=== PATIENT | male | born 1935 | race Caucasian/White ===

== ENCOUNTER → 2016-08-01 | Outpatient (CLI) | payer MEDICARE, OTHER | END | disposition home or self-care (01) | LOC: GMAL 10:38 | PROVIDERS: ATTEND Family Medicine | DX: D51.3 Other dietary vitamin B12 deficiency anemia (principal); E55.9 Vitamin D deficiency, unspecified ==

== ENCOUNTER → 2016-11-19 | Outpatient (CLI) | payer MEDICARE, OTHER | END | disposition home or self-care (01) | LOC: GMAL 12:03 | PROVIDERS: ATTEND Family Medicine | DX: E55.9 Vitamin D deficiency, unspecified (principal) ==

== ENCOUNTER → 2017-02-20 | Outpatient (CLI) | payer MEDICARE, OTHER | END | disposition home or self-care (01) | LOC: GMAL 10:46 | PROVIDERS: ATTEND Family Medicine | DX: Z12.5 Encounter for screening for malignant neoplasm of prostate (principal); M25.50 Pain in unspecified joint | CPT/HCPCS: 84550; G0103 ==

== ENCOUNTER → 2017-05-29 | Outpatient (CLI) | payer MEDICARE, OTHER | END | disposition home or self-care (01) | LOC: GMAL 10:29 | PROVIDERS: ATTEND Family Medicine | DX: R97.20 Elevated prostate specific antigen [PSA] (principal) ==

== ENCOUNTER → 2017-11-20 | Outpatient (CLI) | payer MEDICARE, OTHER | LOC: GMAL 12:35 | PROVIDERS: ATTEND Family Medicine | DX: R97.20 Elevated prostate specific antigen [PSA] (principal) ==

== ENCOUNTER → 2017-11-27 | Outpatient (CLI) | payer MEDICARE, OTHER | LOC: GMAL 16:35 | PROVIDERS: ATTEND Family Medicine | DX: D51.3 Other dietary vitamin B12 deficiency anemia (principal); R53.82 Chronic fatigue, unspecified ==

== ENCOUNTER → 2018-03-10 | Outpatient (CLI) | payer MEDICARE, OTHER | LOC: GMAL 12:39 | PROVIDERS: ATTEND Family Medicine | DX: R97.20 Elevated prostate specific antigen [PSA] (principal); R53.83 Other fatigue; E55.9 Vitamin D deficiency, unspecified; M10.9 Gout, unspecified ==

== ENCOUNTER → 2018-03-19 | Outpatient (CLI) | payer MEDICARE, OTHER ==
--- NOTE | 2018-03-19 17:25 | MRI ---
EXAM DESCRIPTION: Brain w/o Contrast: MRI. CLINICAL HISTORY: MEMORY LOSS COMPARISON: None. TECHNIQUE: Multiplanar, high-field MRI unit, multiple diffusion sequences, multiple conventional sequences without contrast. FINDINGS: Multiple small foci of hyperintense FLAIR and T2-weighted signal in the periventricular white matter and hoskins-white matter junctions (subcortical white matter) of the cerebral hemispheres. . No hemorrhage, no cerebral edema, and no diffusion restriction. Similar hyperintense foci in the bilateral basal ganglia. No hemorrhage cerebral edema or diffusion restriction. Normal signal in the brainstem and cerebellar hemispheres. No hemorrhage, no cerebral edema, no mass-effect. Concordance of the diffusion and non-diffusion sequences with no diffusion restriction. Cortical sulci, ventricles, and other CSF spaces, and the subdural spaces are normally configured for patients age. No effacement or displacement. No midline shift. No extra-axial hemorrhage. Normal flow signal void in the major vessels of the [place], and the venous sinuses. IACs are symmetric bilaterally. Minimal fluid signal in the bilateral mastoid air cells. No mass effect in the bilateral cerebellopontine angles. Pituitary gland occupies inferior sella, sella appears somewhat deformed on the sagittal sequence, but no mass effect.. Base of the cerebellar tonsils is at the level of the foramen magnum. Minimal mucoperiosteal thickening in the bilateral paranasal sinuses.. The bony calvarium is intact. IMPRESSION: 1. Multiple bilateral foci of abnormal signal in the periventricular white matter and the subcortical white matter which is most likely related to aging and cerebral microvascular disease. Also involving the bilateral basal ganglia. Not associated with intra-axial hemorrhage or diffusion restriction. No cerebral edema. 2. No diffusion restriction or evidence of acute or subacute infarction elsewhere. 3. Minimal deformity of the sella, but pituitary tissue is noted. No definite mass. Correlate for pituitary dysfunction. 4. 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 Electronically signed by: Zain Rizo MD 03/19/2018 5:24 PM [employer]GE[employer]
== END ==
LOC: MRI 11:03
PROVIDERS: ATTEND Family Medicine
DX: R41.81 Age-related cognitive decline (principal)

== ENCOUNTER 2018-05-01 17:38 | Observation (INO) | payer MEDICARE, OTHER ==
[2018-05-01] MEDS ORDERED: TETANUS,DIPHTHERIA,PERTUSSIS 1 EA SYG IM ONE (18:15)
--- NOTE | 2018-05-01 18:21 | ED.PDOC ---
History of Present Illness - General Chief Complaint: Trauma Stated Complaint: fall Time Seen by Provider: 05/01/18 18:12 Source: patient, RN notes reviewed - History of Present Illness Initial Comments: The patient presents to the ED with complaint of fall just prior to arrival. The patient was holding an 80 pound dog and as he was placing the dog onto the ground he was noted to fall from standing height which caused him to strike his head, left shoulder, left elbow, left forearm as well as his left ribs. The patient states that he is suffering from a mild headache as well as bleeding from his head injury. The patient also complains of left sided abdominal pain/rib pain as well. The patient states that he did not suffer from LOC with this issue. The patient does not have a history of blood thinner usage but does admit to ASA usage. Allergies/Adverse Reactions: Allergies Penicillins Allergy (Verified 05/01/18 22:41) Sulfa Antibiotics Allergy (Verified 05/01/18 22:41) Home Medications: Ambulatory Orders Aspirin [Aspirin 81] 81 mg PO DAILY 06/15/13 Doxepin HCl 10 mg PO HS 06/15/13 Enalapril Maleate [Vasotec] 20 mg PO BEDTIME 06/15/13 Atorvastatin Calcium [Lipitor] 5 mg PO DAILY 05/01/18 Cholecalciferol [Vitamin D3] 1,000 unit PO DAILY 05/01/18 Cyanocobalamin [Vitamin B-12] 2,500 mcg SL DAILY 05/01/18 Glimepiride 1 mg PO BEDTIME 05/01/18 Metformin HCl 500 mg PO TID 05/01/18 Review of Systems - Review of Systems Review of Systems: 05/01/18 18:21 A 10 PT ROS WAS DONE AT THE PATIENT'S BEDSIDE AND IS NEGATIVE EXCEPT NOTED IN THE PATIENT'S HPI. Past Medical History (General) - Patient Medical History Hx Congestive Heart Failure: No Hx Hypertension: Yes Hx Diabetes: Yes Hx Cancer: No Hx Hepatitis C: No Surgical History: other - Vaccination History Hx Tetanus, Diphtheria Vaccination: Yes - 2017 Hx Influenza Vaccination: No Hx Pneumococcal Vaccination: Yes - Social History Hx Tobacco Use: No Hx Alcohol Use: Yes - Female History Patient : No Family Medical History - Family History Mother Family History: Unknown Physical Exam - Physical Exam General Appearance: Comfortable, Well Developed, Well Groomed Eye Exam: bilateral normal Ears, Nose, Throat: hearing grossly normal, normal ENT inspection, other - THERE ARE MULTIPLE ABRASIONS ON THE LEFT SIDE OF THE FACE WITH A .25CM LACERATION ABOVE THE LEFT EYEBROW WITH +BLEEDING. Neck: non-tender, full range of motion, supple Respiratory: chest non-tender, lungs clear, normal breath sounds Cardiovascular/Chest: normal peripheral pulses, regular rate, rhythm Gastrointestinal/Abdominal: normal bowel sounds, soft, no organomegaly, tenderness - LEFT LOWER ABD Back Exam: CVA tenderness (L) Extremity: normal range of motion, swelling - LEFT SHOULDER/LEFT FOREARM NOTED., other - THERE IS TTP OF THE LEFT FOREARM/SHOULDER/ELBOW AT THIS TIME. THERE IS NO TTP OF THE LEFT WRIST(INCLUDING SNUFFBOX) WELL NO TTP OF THE LEFT HAND NOTED. Neurologic: alert, normal mood/affect, oriented x 3 Lymphatic: no adenopathy Progress - Progress Progress: 05/01/18 18:32 DDX HEAD INJURY, CERVICAL SPINE INJURY, TRUNK INJURY, INTERNAL HEMORRHAGE, SOLID ORGAN INJURY, HOLLOW ORGAN INJURY, SPINAL INJURY, LACERATION, ABRASION, CONTUSION, SPRAIN. MDM PATIENT PRESENTATION APPEARS TO BE CONSISTENT WITH INJURIES DUE TO TRAUMA. WILL ORDER IMAGING OF AREAS THAT WERE INJURED(CT HEAD/NECK/CHEST/AP WELL PLAIN FILMS OF THE LUE IN THE AREAS THAT THE PATIENT ENDORSES PAIN) TO EVALUATE FOR EMERGENT PATHOLOGY IN THESE AREAS. IF NOTHING EMERGENT FOUND, DISPO WILL BE HOME. 05/01/18 19:14 The patient states that his pain is worsened in his left ribs at this time. Will order morphine sulfate for pain relief. The patient's blood pressure is also noted to be elevated at 200 systolically, with questioning the patient has not taken his BP medication which we will administer now. The patient also has been advised of his shoulder,elbow, FA x-ray as well as lab results. The patient states that he has pain in his hand as well as wrist at this time and in light of this I will add plain films of these areas (the patient has no snuffbox ttp noted on exam). It should be noted that the patient and his have been advised that the patient must hold his metformin for 72hours due to contrast that he will receive to evaluate for trauma. 05/01/18 19:47 THE PATIENT WAS NOTED TO HAVE A NEAR SYNCOPAL EPISODE AT THIS TIME. HIS BLOOD PRESSURE WAS NOTED TO DECREASE FROM 200 SYSTOLIC TO LESS THAN 140 AT THIS TIME. THE PATIENT STATES THAT HE FEELS WEAK. I WILL CONTINUE TO MONITOR THE PATIENT FOR CLINICAL CHANGES. 05/01/18 21:59 THE PATIENT REMAINS STABLE AT THIS TIME. I HAVE ADVISED HIM OF ALL LAB AND RADIOLOGICAL RESULTS AT THIS TIME. HE IS ADVISED WE WILL ADMIT HIM TO THE HOSPITALIST SERVICE FOR PAIN CONTROL WELL FOR MONITORING. DUE TO THE PATIENT'S PERSISTENT HYPERTENSION, WILL ADD EKG/TROPONIN AT THIS TIME TO SCREEN FOR ATYPICAL ACS. - Results/Orders Results/Orders: PLEASE NOTE ALL LAB AND RADIOLOGICAL RESULTS WERE REVIEWED IN REGARDS TO THIS PATIENT. - EKG/XRAY/CT Comments: EKGNSR, RATE OF 76 BPM, AXIS NL, NONSPECIFIC ST CHANGES NOTED. XRAY: LEFT ELBOW/FOREARM/SHOULDER/WRIST/HAND Xray Comments: NO ACUTE FX NOTED. CT: HEAD/NECK/CHEST/AP RESULTS REVIEWED. DISCUSSED W/ PATIENT. - Consult/PCP Time Called: 21:20 Consult/PCP: ACCEPTS THE PATIENT ADMISSION AT THIS TIME. Procedures - Laceration/Wound Repair Left Eye Wound Length (cm): 0.2 - the length of the laceration is .25cm, [employer] has limited me putting in 0.25 in the wound length. Wound's Depth, Shape: superficial Wound Explored: clean Irrigated w/ Saline (cc's): 60 Betadine Prep?: No Anesthesia: 1% Lidocaine Volume Anesthetic (cc's): 3 Suture Size/Type: 5:0, prolene Number of Sutures: 2 Layer Closure?: No Progress: THE PATIENT TOLERATED THIS PROCEDURE WELL. Departure - Departure Clinical Impression: Near syncope, Blunt trauma Facial laceration Qualifiers: Encounter type: initial encounter Qualified Code(s): S01.81XA - Laceration without foreign body of other part of head, initial encounter Hypertension Qualifiers: Hypertension type: unspecified Qualified Code(s): I10 - Essential (primary) hypertension Rib fractures Qualifiers: Encounter type: initial encounter Rib fracture type: multiple ribs Fracture type: closed Laterality: unspecified laterality Qualified Code(s): S22.49XA - Multiple fractures of ribs, unspecified side, initial encounter for closed fracture Disposition: Admit Patient Condition: Fair Home Medications: Ambulatory Orders Aspirin [Aspirin 81] 81 mg PO DAILY 06/15/13 Doxepin HCl 10 mg PO HS 06/15/13 Enalapril Maleate [Vasotec] 20 mg PO BEDTIME 06/15/13 Atorvastatin Calcium [Lipitor] 5 mg PO DAILY 05/01/18 Cholecalciferol [Vitamin D3] 1,000 unit PO DAILY 05/01/18 Cyanocobalamin [Vitamin B-12] 2,500 mcg SL DAILY 05/01/18 Glimepiride 1 mg PO BEDTIME 05/01/18 Metformin HCl 500 mg PO TID 05/01/18 Decision To Admit - Decistion To Admit Decision to Admit Reason: Admit from ER Decision to Admit Date: 05/01/18 Decision to Admit Time: 22:51
--- NOTE | 2018-05-01 19:07 | RAD ---
EXAM: Elbow,Left 3 Views (accession [id number]), Forearm,Left (accession [id number]), Shoulder,Left 2 or More Views (accession [id number]) CLINICAL INDICATION: Left shoulder pain, left elbow pain, left forearm pain COMPARISON: There is no previous study for comparison. FINDINGS: Two views of the left shoulder reveal no fracture or dislocation. Mild degenerative changes of the glenohumeral and AC joints are noted. Two views of the left elbow reveal no fracture or dislocation. There is no elbow joint effusion. Two views of the left forearm reveal no fracture or dislocation. The osseous structures appear intact and unremarkable. IMPRESSION: Negative left shoulder, left elbow, and left forearm radiographs. Electronically signed by: Kevin Olivo MD 05/01/2018 7:06 PM [facility]
--- NOTE | 2018-05-01 19:07 | RAD ---
EXAM: Elbow,Left 3 Views (accession [id number]), Forearm,Left (accession [id number]), Shoulder,Left 2 or More Views (accession [id number]) CLINICAL INDICATION: Left shoulder pain, left elbow pain, left forearm pain COMPARISON: There is no previous study for comparison. FINDINGS: Two views of the left shoulder reveal no fracture or dislocation. Mild degenerative changes of the glenohumeral and AC joints are noted. Two views of the left elbow reveal no fracture or dislocation. There is no elbow joint effusion. Two views of the left forearm reveal no fracture or dislocation. The osseous structures appear intact and unremarkable. IMPRESSION: Negative left shoulder, left elbow, and left forearm radiographs. Electronically signed by: Kevin Olivo MD 05/01/2018 7:06 PM [facility]
--- NOTE | 2018-05-01 19:07 | RAD ---
EXAM: Elbow,Left 3 Views (accession [id number]), Forearm,Left (accession [id number]), Shoulder,Left 2 or More Views (accession [id number]) CLINICAL INDICATION: Left shoulder pain, left elbow pain, left forearm pain COMPARISON: There is no previous study for comparison. FINDINGS: Two views of the left shoulder reveal no fracture or dislocation. Mild degenerative changes of the glenohumeral and AC joints are noted. Two views of the left elbow reveal no fracture or dislocation. There is no elbow joint effusion. Two views of the left forearm reveal no fracture or dislocation. The osseous structures appear intact and unremarkable. IMPRESSION: Negative left shoulder, left elbow, and left forearm radiographs. Electronically signed by: Kevin Olivo MD 05/01/2018 7:06 PM [facility]
[2018-05-01] MEDS ORDERED: SODIUM CHLORIDE 0.9% 1000ML 1,000 ML ONE (19:11)
[2018-05-01] MEDS ORDERED: MORPHINE SULFATE INJ 10 MG/ML VIAL IV ONE ×2 (19:12→22:24)
[2018-05-01] MEDS ORDERED: ENALAPRIL MALEATE 5 MG TAB PO ONE (19:12)
[2018-05-01] MEDS ORDERED: SODIUM CHLORIDE 0.9% 1000ML 1,000 ML IVS ONE (19:20)
--- NOTE | 2018-05-01 20:45 | RAD ---
EXAM: Hand,Left 3 Views (accession [id number]), Wrist,Left 3 Views (accession [id number]) CLINICAL INDICATION: Left wrist pain COMPARISON: There is no previous study for comparison. FINDINGS: Three views of the left wrist three views of the left hand reveal no acute fracture or dislocation. There are mild degenerative changes involving the interphalangeal joints of the fingers and thumb. The osseous structures are otherwise intact and unremarkable. IMPRESSION: No acute fracture or dislocation. Degenerative changes. Electronically signed by: Kevin Olivo MD 05/01/2018 8:44 PM [facility]
--- NOTE | 2018-05-01 20:45 | RAD ---
EXAM: Hand,Left 3 Views (accession [id number]), Wrist,Left 3 Views (accession [id number]) CLINICAL INDICATION: Left wrist pain COMPARISON: There is no previous study for comparison. FINDINGS: Three views of the left wrist three views of the left hand reveal no acute fracture or dislocation. There are mild degenerative changes involving the interphalangeal joints of the fingers and thumb. The osseous structures are otherwise intact and unremarkable. IMPRESSION: No acute fracture or dislocation. Degenerative changes. Electronically signed by: Kevin Olivo MD 05/01/2018 8:44 PM [facility]
--- NOTE | 2018-05-01 20:46 | CT ---
EXAM: Head CLINICAL INDICATION: Trauma, pain COMPARISON: There is no previous study for comparison. TECHNIQUE: The CT scan was done using contiguous axial 5 mm sections through the brain. This exam was performed according to our departmental dose-optimization program, which includes automated exposure control, adjustment of the mA and/or kV according to patient size and/or use of iterative reconstruction technique. FINDINGS: There is no midline shift, mass effect, or extraaxial fluid collection. There is no evidence of acute intracranial hemorrhage, mass lesion, or cerebral edema. Mild diffuse atrophy and nonspecific chronic ischemic changes are noted. Bone window images reveal no evidence of a skull fracture. IMPRESSION: No evidence of an acute intracranial process. Electronically signed by: Kevin Olivo MD 05/01/2018 8:45 PM POSTPARTUM NURSE
--- NOTE | 2018-05-01 20:48 | CT ---
EXAM: Maxillofacial CLINICAL INDICATION: Trauma, facial pain COMPARISON: There is no previous study for comparison. TECHNIQUE: The CT scan was done using contiguous axial 2.5 mm sections through the facial bones with coronal and sagittal reconstructions. This exam was performed according to our departmental dose-optimization program, which includes automated exposure control, adjustment of the mA and/or kV according to patient size and/or use of iterative reconstruction technique. FINDINGS: There is no fracture. The visualized paranasal sinuses are clear. The globes, extraocular muscles, and optic nerves are intact, symmetric, and unremarkable. The visualized osseous structures appear unremarkable. IMPRESSION: Negative CT scan of the facial bones. Electronically signed by: Kevin Olivo MD 05/01/2018 8:46 PM [employer] MACHINE FILLER
--- NOTE | 2018-05-01 20:49 | CT ---
EXAM: Cervical Spine CLINICAL INDICATION: Trauma, pain COMPARISON: There is no previous study for comparison. TECHNIQUE: The CT scan was done using contiguous axial 3mm sections through the cervical spine with sagittal and coronal reconstructions. This exam was performed according to our departmental dose-optimization program, which includes automated exposure control, adjustment of the mA and/or kV according to patient size and/or use of iterative reconstruction technique. FINDINGS: There is no fracture or subluxation. The prevertebral soft tissues are normal. The bilateral facet joint alignment is normal. The osseous structures appear intact and unremarkable, except for mild to moderate multilevel degenerative disc disease. IMPRESSION: No evidence of acute traumatic injury. Electronically signed by: Kevin Olivo MD 05/01/2018 8:48 PM COST CONTROL ANALYST
--- NOTE | 2018-05-01 20:53 | CT ---
EXAM: Abdomen/Pelvis w/Contrast (accession [id number]), Chest w/Contrast (accession [id number]) CLINICAL INDICATION: Trauma, abdomen pain, chest pain COMPARISON: 08/16/2014 TECHNIQUE: The CT scan was done using contiguous axial 5 mm postcontrast sections through the chest, abdomen and pelvis including IV contrast. This exam was performed according to our departmental dose-optimization program, which includes automated exposure control, adjustment of the mA and/or kV according to patient size and/or use of iterative reconstruction technique. FINDINGS: Images through the chest reveal that the aorta and great vessels are grossly unremarkable. There are no enlarged mediastinal or hilar lymph nodes. The lungs are clear except for mild bibasilar dependent subsegmental atelectasis. There is no pneumothorax or pleural effusion. Fractures of the posterolateral left ninth and 10th ribs are noted. Images through the abdomen and pelvis reveal that the liver, gallbladder, spleen, adrenal glands, and pancreas are unremarkable. Several small bilateral renal cysts are noted. The kidneys are otherwise unremarkable. There is a prominent duodenal diverticulum arising medially from the second portion of the duodenum measuring 6.1 x 5.3 cm. The aorta contains atherosclerotic calcifications with no evidence of aneurysm. There are no dilated loops of small bowel. A penile implant is noted. There is no free air, free fluid, or abscess. No other fractures are seen within the visualized osseous structures. IMPRESSION: 1. Acute appearing fractures of the left posterolateral ninth and 10th ribs. 2. No other acute traumatic injury or acute process in the chest, abdomen, or pelvis. Electronically signed by: Kevin Olivo MD 05/01/2018 8:51 PM [facility]
--- NOTE | 2018-05-01 20:53 | CT ---
EXAM: Abdomen/Pelvis w/Contrast (accession [id number]), Chest w/Contrast (accession [id number]) CLINICAL INDICATION: Trauma, abdomen pain, chest pain COMPARISON: 08/16/2014 TECHNIQUE: The CT scan was done using contiguous axial 5 mm postcontrast sections through the chest, abdomen and pelvis including IV contrast. This exam was performed according to our departmental dose-optimization program, which includes automated exposure control, adjustment of the mA and/or kV according to patient size and/or use of iterative reconstruction technique. FINDINGS: Images through the chest reveal that the aorta and great vessels are grossly unremarkable. There are no enlarged mediastinal or hilar lymph nodes. The lungs are clear except for mild bibasilar dependent subsegmental atelectasis. There is no pneumothorax or pleural effusion. Fractures of the posterolateral left ninth and 10th ribs are noted. Images through the abdomen and pelvis reveal that the liver, gallbladder, spleen, adrenal glands, and pancreas are unremarkable. Several small bilateral renal cysts are noted. The kidneys are otherwise unremarkable. There is a prominent duodenal diverticulum arising medially from the second portion of the duodenum measuring 6.1 x 5.3 cm. The aorta contains atherosclerotic calcifications with no evidence of aneurysm. There are no dilated loops of small bowel. A penile implant is noted. There is no free air, free fluid, or abscess. No other fractures are seen within the visualized osseous structures. IMPRESSION: 1. Acute appearing fractures of the left posterolateral ninth and 10th ribs. 2. No other acute traumatic injury or acute process in the chest, abdomen, or pelvis. Electronically signed by: Kevin Olivo MD 05/01/2018 8:51 PM [facility]
[2018-05-01] MEDS ORDERED: cloNIDine HCL 0.1 MG TAB ONE (21:27)
[2018-05-01] MEDS ORDERED: cloNIDine HCL 0.1 MG TAB PO ONE (21:28)
[2018-05-01] MEDS ORDERED: LIDOCAINE 1% 10 ML VIAL INJ ONE (22:14)
--- NOTE | 2018-05-01 22:50 | HP ---
SUPERVISING PHYSICIAN: Bay Ramirez MD CHIEF COMPLAINT: Fall with syncopal episode. HISTORY OF PRESENT ILLNESS: Mr. Vasquez is an 82 year-old male patient who presented to the Emergency Department yesterday afternoon after he sustained a same-level fall at home. He notes that he was carrying a dog that weighed over 80 pounds and attempting to cross the driveway, he lost his balance and fell from a standing position striking his head, left shoulder, left elbow, forearm and ribcage. On presentation to the Emergency Room he noted he had a mild headache radiating from his left lateral orbit from the laceration and was having some left-sided abdominal and rib pain. In the Emergency Room he was examined and had multiple x-rays to rule out any acute trauma including maxillofacial and cervical spine CTs to rule out any acute findings. CT of the chest did show fractures of the posterolateral 9th and 10th ribs on the left side but no free air or free fluid or pneumothorax. He had x-rays of his left forearm, shoulder and elbow that were also without any acute traumatic findings involving or dislocations. CT of the head was clear for any acute injuries and his cervical spine was cleared for any acute traumatic injuries. His wrist and hand were also x-rayed which were without any acute findings. His laceration over his left eye was sutured. He was observed for a short period of time in the Emergency Room. Laboratory was completed and showed a white count of 6,000, hemoglobin 13.5, hematocrit 39.4 with normal differential. Chemistries were essentially unremarkable with normal potassium. Creatinine 1.03, troponin 0.02. Liver functions were all within normal limits including lipase. Urinalysis showed 100 protein and trace intact blood, otherwise within normal limits. He was going to be discharged home, however, the patient had gotten up to go to the bathroom and in the process had a syncopal that was witnessed. It was also noted that he was quite hypertensive in the Emergency Room with a blood pressure as high as 204/118. Just before the syncopal episode he had been given pain medicine to include morphine as well as his home medications that included Vasotec. His heart rate remained in the 70s to 80s, even during the syncopal episodes. He did come around shortly after without any other neurological deficits but his blood pressure continued to be elevated. He was treated with Clonidine which did result in some decrease in his blood pressure and on admission to the medical/surgical floor he was showing a blood pressure of 178/100. He was not complaining of any chest pain but notes that he does have a history of shortness of breath, especially with any exertional effort. Review of his history and assessment of past medical history revealed that he had been in cardiac rehabilitation in the last 2 months due to some worsening shortness of breath on recommendations of his aerospace physiological technician, Dr. Arevalo. He saw Dr. Arevalo in the early part of April for continued workup of shortness of breath and reportedly having some low blood pressures periodically. Review of his past medical history shows that he had a heart catheterization done in 2014 with 50% left anterior descending stenosis which was treated medically. An echocardiogram in January 2015 showed an ejection fraction of 60% with a grade [address] Arevalo apparently was to start him on Spironolactone, however, there was some miscommunication between pharmacies and has not yet started that medication and his noted that his blood pressure has been high at home but also had some times when it dropped significantly low with the systolics in the 80s. Given his advanced age and past medical history with difficulty managing his blood pressure and the syncopal episode in the Emergency Room, the patient is going to be placed in observation overnight for continued both neurological and cardiovascular assessments with continued cardiac monitoring. His blood pressure was controlled with Clonidine prior to admission and was showing to be stabilizing prior to admission. He is admitted in stable condition. PAST MEDICAL HISTORY: 1. Coronary artery disease with heart cath March 2015 that showed 50% stenosis and currently medically managed. 2. Hyperlipidemia. 3. Hypertension diagnosed in 1989. 4. History of colon polyps. 5. Erectile dysfunction. 6. Type 2 diabetes mellitus diagnosed in 1989. 7. Hypogonadism. PAST SURGICAL HISTORY: 1. Appendectomy. 2. Hemorrhoidectomy. 3. Umbilical hernia repair in 2004. 4. Prostate biopsy for benign prostatic hypertrophy in 2010. 5. Umbilical hernia repair in December of 2013 complicated by C-difficile infection and pneumonia. 6. Small bowel resection for small bowel obstruction secondary to perforated jejunal diverticula in August of 2014. 7. Right cataract removal in 2015. CURRENT MEDICATIONS: ALLERGIES: PENICILLINS, SULFA ANTIBIOTICS FAMILY HISTORY: Father at age 93 secondary to congestive heart failure. Mother at 95 after a stroke. He has one younger sister who is healthy and 2 children, both girls who are healthy. SOCIAL HISTORY: The patient is and lives in [place]. He is currently retired. 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 He rarely drinks alcohol and has never smoked tobacco and does not use illicit drugs. REVIEW OF SYSTEMS: CONSTITUTIONAL: Negative for any fevers, chills, intentional weight loss. HEENT: Positive for bilateral reduced hearing. Negative for any earache, sore throat, nasal congestion. RESPIRATORY: As noted in history of present illness, ongoing attritional dyspnea, currently followed by Dr. Arevalo but no wheezing or cough. CARDIOVASCULAR: Negative for chest pain, palpitations, positive for syncopal episode as noted in history of present illness and episodes of hypotension with some currently uncontrolled hypertension. He does have pain to the lateral chest wall status post fall as noted in history of present illness with fractured ribs. GASTROINTESTINAL: Negative for nausea, vomiting, diarrhea, abdominal pain or constipation. MUSCULOSKELETAL: Positive for abrasions to both upper and lower left extremity status post fall as noted in history of present illness. NEUROLOGICAL: Negative for ataxia, seizure activity. Positive for syncopal episode as noted in history of present illness. PHYSICAL EXAMINATION: VITAL SIGNS: At time of admission in the Emergency Room, temperature was 99.1, pulse 84, blood pressure 180/109 with respirations of 22, saturation 96% on room air. In the Emergency Room he did have a blood pressure up to 185/119 and was started on some Clonidine as well as given some Vasotec, initially on admission to the floor was showing a blood pressure of 195/108 and after pain medicine and admission completion his blood pressure was reassessed and showing to be 187/97 with a heart rate of 81. Admission weight 102.8 kg. GENERAL: The patient appears to be in no acute distress, resting comfortably. He is alert. HEENT: Tympanic membranes are clear bilaterally. Oropharynx pink and moist without any lesions. Overlying the left upper orbit to the lateral aspect there was a 1 cm laceration with [address] with an ecchymotic area noted. NECK: Supple with full range of motion, no jugular venous distention. Negative for any palpitations to the cervical spine. CHEST: Lung sounds were clear throughout but diminished towards both bases without any sepsis noted with equal and symmetrical chest wall movement. No obvious deformities noted to the chest wall. CARDIOVASCULAR: ABDOMEN: Obese but soft, non-tender with positive bowel sounds. EXTREMITIES: Both upper and lower extremities had some abrasions on the left side from the fall but no cyanosis, clubbing, or edema and he is moving all extremities ad tania. MUSCULOSKELETAL: Back exam noted to be without any traumatic findings. No tenderness to palpation over the lumbar or thoracic spine. No notable deformities. NEUROLOGIC: Cranial nerves II through XII are grossly intact. Facial features were Symmetrel. Extraocular movements were within normal limits. There was no notable nystagmus. He was alert and oriented x3. SKIN: Multiple abrasions to the lower left and right extremities with ecchymotic area to the left eye and a small laceration above the left eye with stitches in place. LABORATORY: CBC showed white count of 6,000, hemoglobin 13.5, hematocrit 39.4, platelet count 165,000, differential showed to be without a left shift. Electrolytes normal with BUN 14, creatinine 1.03, glucose 158, liver functions all within normal limits. Troponin 0.02. BNP only slightly elevated at 152. Lipase normal at 36. Urinalysis showed 100 of protein with trace intact blood, otherwise within normal limits. RADIOLOGY: He had multiple CTs including cervical spine, head, chest and abdominal pelvis with only acute findings per radiology interpretation to include the posterolateral left 9th and 10th ribs with nondisplaced fractures. He also had a maxillofacial CT. All other findings were without any pathology. He did have multiple x-rays including elbow, forearm, shoulder, hand and wrist of the left extremities without any acute fracture or dislocation per radiology interpretation. 12-lead EKG completed in the Emergency Room shows a normal sinus rhythm at 76 [id number] with nonspecific ST changes compared to EKG from the clinic in 2016 shows no significant acute changes. ASSESSMENT: 1. Syncopal episode status post same-level fall. 2. Hypertensive urgency on admission with an echocardiogram in 2014 showing a grade 1 diastolic dysfunction with preserved ejection fraction of 60 to 66%. 3. Chronic exertional dyspnea currently being worked up by Dr. Arevalo, his aerospace physiological technician, and having been started on new medication to include Spironolactone awaiting an echocardiogram and stress test in the next weeks, to followup with Dr. Arevalo. 4. Type 2 diabetes mellitus. 5. History of coronary artery disease with previous cardiac catheterization in 04/26 with 50% stenosis of left anterior descending, currently on medical management without any reported chest pains or EKG findings to indicate any evidence of acute myocardial infarction on admission. 6. Acute rib fractures involving the posterolateral 9th and 10th ribs on the left status post same-level fall without any findings of pneumo or hemothorax on current radiographic studies, requiring close monitoring. PLAN: The patient is going to be placed in observation to night for close cardiac and neurological monitoring. We will restart his home medication including his Spironolactone and closely monitor his blood pressure and treat as needed. At this time, his blood pressure is coming down after being given Clonidine in the Emergency Room. We will closely monitor and address as needed. We will repeat a chest film in the morning as well as hemoglobin and hematocrit. Will anticipate length of stay to be 1 to 2 days. Once able to discharge, the patient will need close clinical followup with Dr. Khanna, his primary care physician, as well as continued followup with Dr. Arevalo in regards to current workup for the exertional dyspnea. Until he can transition to outpatient management, we will continue to monitor and treat as needed. #[id number] MTDD
[2018-05-02] MEDS ORDERED: ACETAMINOPHEN 325 MG TAB PO PRN (00:12)
[2018-05-02] MEDS ORDERED: SODIUM CHLORIDE 0.9% (FLUSH) 10 ML SYG IV PRN (00:12)
[2018-05-02] MEDS ORDERED: ONDANSETRON INJ 4 MG/2 ML VIAL IV PRN (00:12)
[2018-05-02] MEDS ORDERED: HYDROcodone 5MG/APAP 325MG 1 EA TAB PO PRN (00:12)
[2018-05-02] MEDS ORDERED: MORPHINE SULFATE INJ 10 MG/ML VIAL IV PRN (00:12)
[2018-05-02] MEDS ORDERED: KETOROLAC TROMETHAMINE INJ 30 MG/ML VIAL IV ONE (00:20)
[2018-05-02] MEDS ORDERED: IV SET AND CAP CHANGE INJ INJ SCH (00:30)
--- NOTE | 2018-05-02 07:13 | RAD ---
EXAM: Chest,2 Views CLINICAL HISTORY: s/p fall with acute rib fx left 9--10 COMPARISON STUDY: CT chest May 01, 2018 TECHNICAL: PA and lateral chest x-ray. FINDINGS: The lungs are clear. There is no infiltrate/consolidation. There is no sign of interstitial pulmonary edema. There is no pleural effusion and no pneumothorax. The heart is not enlarged. There are mild vascular calcifications within the aortic arc the left-sided rib fractures are better visualized on the CT scan IMPRESSION: Left eighth through 10th rib fractures are much better seen on the CT scan. There is no pneumothorax, contusion or pleural fluid collection. Electronically signed by: Paulie Schuster MD 05/02/2018 7:12 AM [facility]
[2018-05-02] MEDS ORDERED: ASPIRIN (ENTERIC COATED) 81 MG TAB PO SCH (09:00)
[2018-05-02] MEDS ORDERED: SPIRONOLACTONE 25 MG TAB PO SCH (09:00)
[2018-05-02] MEDS ORDERED: ENOXAPARIN SODIUM 40 MG/0.4 ML SYG SUBCU SCH (09:00)
[2018-05-02] MEDS ORDERED: ATORVASTATIN 10 MG TAB PO SCH (09:00)
[2018-05-02] MEDS ORDERED: DEXTROSE 50% 25 GM/50 ML SYG IV PRN (10:07)
[2018-05-02] MEDS ORDERED: GLUCAGON INJ 1 MG VIAL SUBCU PRN (10:07)
[2018-05-02 10:27] VITALS: BP 157/87; TEMP 97; O2SAT 97
[2018-05-02] MEDS ORDERED: KETOROLAC TROMETHAMINE INJ 30 MG/ML VIAL IM ONE (11:00)
[2018-05-02] MEDS ORDERED: INSULIN LISPRO 100 UNITS/ML PEN SUBCU SCH (11:30)
[2018-05-02] MEDS ORDERED: ENALAPRIL MALEATE 5 MG TAB PO SCH (21:00)
[2018-05-02] MEDS ORDERED: DOXEPIN HCL 10 MG PO SCH (21:00)
[2018-05-02] MEDS ORDERED: GLIMEPIRIDE 2 MG TAB PO SCH (21:00)
[2018-05-03] MEDS ORDERED: ATORVASTATIN 10 MG TAB PO SCH (21:00)
--- NOTE | 2018-05-11 22:24 | DS ---
SUPERVISING PHYSICIAN: Bay Ramirez M.D. ADMISSION DIAGNOSIS: 1. Syncopal episode status post same-level fall. 2. Hypertensive urgency on admission with an echocardiogram in 2014 showing a grade 1 diastolic dysfunction with preserved ejection fraction of 60 to 66%. 3. Chronic exertional dyspnea currently being worked up by Dr. Arevalo, his rn spine, and having been started on new medication to include Spironolactone awaiting an echocardiogram and stress test in the next weeks, to followup with Dr. Arevalo. 4. Type 2 diabetes mellitus. 5. History of coronary artery disease with previous cardiac catheterization in 04/26 with 50% stenosis of left anterior descending, currently on medical management without any reported chest pains or EKG findings to indicate any evidence of acute myocardial infarction on admission. 6. Acute rib fractures involving the posterolateral 9th and 10th ribs on the left status post same-level fall without any findings of pneumo or hemothorax on current radiographic studies, requiring close monitoring. DISCHARGE DIAGNOSIS: 1. Syncopal episode status post same-level fall possibly due to some postural hypotension. 2. Chronic exertional dyspnea currently being followed by Dr. Arevalo, having been started on new medications to include Spironolactone, awaiting a scheduled echocardiogram and stress test within the next weeks at followup. 3. Type 2 diabetes mellitus. 4. History of coronary artery disease with previous cardiac catheterization in 04/2015 with 50% stenosis of left anterior descending, currently on medical management without any reported chest pains during admission. 5. Acute rib fractures involving the posterolateral 9th and 10th ribs on the left status post same-level fall without any complications, including no evidence of pneumo or hemothorax. REASON FOR HOSPITALIZATION: Mr. Vasquez is an 82 year-old male patient who presented to the Emergency Department yesterday afternoon after he sustained a same-level fall at home. He notes that he was carrying a dog that weighed over 80 pounds and attempting to cross the driveway, he lost his balance and fell from a standing position striking his head, left shoulder, left elbow, forearm and ribcage. On presentation to the Emergency Room he noted he had a mild headache radiating from his left lateral orbit from the laceration and was having some left-sided abdominal and rib pain. In the Emergency Room he was examined and had multiple x-rays to rule out any acute trauma including maxillofacial and cervical spine CTs to rule out any acute findings. CT of the chest did show fractures of the posterolateral 9th and 10th ribs on the left side but no free air or free fluid or pneumothorax. He had x-rays of his left forearm, shoulder and elbow that were also without any acute traumatic findings involving or dislocations. CT of the head was clear for any acute injuries and his cervical spine was cleared for any acute traumatic injuries. His wrist and hand were also x-rayed which were without any acute findings. His laceration over his left eye was sutured. He was observed for a short period of time in the Emergency Room and found to be stable. LABORATORY STUDIES: White count showed to be 6,000, hemoglobin 13.5, hematocrit 39.4, platelet count 165,000. Differential showed to be without a left shift. Chemistries showed normal electrolytes with potassium 4.0, BUN 14, creatinine 1.03, glucose 158. Liver functions all showed normal limits. Troponin was 0.02 with slightly elevated BNP of 152. Lipase normal at 36. Urinalysis showed 100 protein, trace amount of blood, otherwise within normal limits. MICROBIOLOGY: No specimens were submitted. RADIOLOGY: He had multiple x-rays that included a cervical spine, head CT, abdominal/pelvis CT and maxillofacial CT without any acute findings. He also had x-rays of left hand, left wrist, left forearm, left elbow all without acute findings as well as left shoulder and elbow. EKG showed normal sinus rhythm without any acute changes. No comparisons were available for review. HOSPITAL COURSE: Mr. Vasquez was admitted overnight for observation after he sustained a same level fall and some rib fractures. He was provided pain management of the rib fractures with oral [place] as well as some Toradol which he responded well to. He was not showing any complications. No respiratory compromise. No neurological changes were noted overnight. It was felt that he had shown to be stable enough to continue with outpatient management. His vital signs at discharge showed he was afebrile with temperature 97, pulse 69, blood pressure 157/87, respirations 16, satting 97% on room air. DISCHARGE EXAMINATION: GENERAL: The patient appeared to be comfortable in no acute distress. CHEST: Lung sounds were diminished due to poor inspiratory effort from pain, but no wheezing or rhonchi. No crepitus was noted on palpation of the chest wall. He had equal and symmetrical chest movement with no obvious deformities. HEART: Regular rate and rhythm. ABDOMEN: Soft, non-tender. Positive bowel sounds. EXTREMITIES: There were again multiple abrasions noted on the left side from previous fall but no edema. He was moving all extremities ad tania. MUSCULOSKELETAL: He was moving all extremities ad tania. No tenderness noted on palpation of the lumbar and thoracic spines. No deformities. NEUROLOGIC: Cranial nerves remained grossly intact. Facial features were symmetrical. He was alert and oriented times three. SKIN: Multiple abrasions were again noted on the left and right upper extremities with ecchymotic area to the left eye and a small laceration above the left eye with stitches in place. PLAN: Mr. Vasquez was discharged on 05/02/18 with instructions to followup with Dr. Khanna on 05/07/18 at [id number]. He was to resume his home medications as previous. He was instructed how to splint his ribs when he coughs to prevent further pain. He was again told to hold his Metformin until Saturday after he was discharged due to contrast administration for the CT. He was encouraged deep breathing exercises to prevent complications such as pneumonia and atelectasis, and told to return to the hospital should any concerning symptoms. Diet at discharge was diabetic diet as tolerated. Activity is increase as tolerated. No pulling or lifting until he was seen in followup with Dr. Khanna. Medications as discharge included: 1. Pain management with Tylenol #3, #30 every 4 hours. No refills. 2. Refill of his Lipitor 10 mg at bedtime, #15. 3. Meloxicam 7.5 mg daily as needed, #30. 4. Spironolactone 25 mg, #15 until he receives his medications through the mail which he had not received prior to admission to the hospital. Condition at discharge was stable and improved. DISCHARGE DISPOSITION: The patient was discharged to followup with Dr. Khanna as well as Dr. Arevalo, to the care of his . #[id number]
== END 2018-05-02 12:50 | disposition home or self-care (01) ==
LOC: ER 17:38 → MS 22:49
PROVIDERS: ADMIT Nurse Practitioner Family; ATTEND Nurse Practitioner Family
DX: S22.42XA Multiple fractures of ribs, left side, initial encounter for closed fracture (principal); R55 Syncope and collapse; S01.112A Laceration without foreign body of left eyelid and periocular area, initial encounter; S00.81XA Abrasion of other part of head, initial encounter; R51 Headache; M25.512 Pain in left shoulder; M79.632 Pain in left forearm; M25.522 Pain in left elbow; R07.81 Pleurodynia; M25.532 Pain in left wrist; M79.642 Pain in left hand; E11.9 Type 2 diabetes mellitus without complications; I10 Essential (primary) hypertension; W18.39XA Other fall on same level, initial encounter; Y93.89 Activity, other specified; Y92.008 Other place in unspecified non-institutional (private) residence as the place of occurrence of the external cause; Z79.84 Long term (current) use of oral hypoglycemic drugs; Z79.82 Long term (current) use of aspirin; Z79.899 Other long term (current) drug therapy; Z88.0 Allergy status to penicillin; Z88.2 Allergy status to sulfonamides
CPT/HCPCS: 12011; 96374; 96375; 96376; 96372; J1885 ×2; J2270 ×2; J2405; J7030; J1650; 80053; 82948; 81001; 85025; 83690; 84484; 83880; 71046; 73030; 73110; 73080; 73090; 73130; 70450; 72125; 71260; 70486; 74177; 94760 ×2; 97116; G8978; G8979; G8980; 97162; 99285; 93005

== ENCOUNTER 2018-05-04 21:19 | Emergency (ER) | payer MEDICARE, OTHER ==
[2018-05-04 21:45] VITALS: TEMP 99.1
--- NOTE | 2018-05-04 21:58 | ED.PDOC ---
History of Present Illness - General Chief Complaint: GI Problem Stated Complaint: nauseated, elevated blood pressure Time Seen by Provider: 05/04/18 21:21 Source: patient Exam Limitations: no limitations - History of Present Illness Initial Comments: Madhu Machado 82 y/o male came to ER with Nause/vomiting today and elevated blood pressure;Denies headache,chest pains blurry vision.Hospitalized 2 days ago after he fell chasing his dog and has left 2 rib fracture and facial laceration repaired.Was placed on codeine for pain.No bowel movement since hospital discharge.Also did not take his BP meds felt nauseated. Timing/Duration: 24 hours Severity: moderate Improving Factors: nothing Worsening Factors: eating Associated Symptoms: other - see hpi Allergies/Adverse Reactions: Allergies Penicillins Allergy (Verified 05/01/18 22:41) Sulfa Antibiotics Allergy (Verified 05/01/18 22:41) Home Medications: Ambulatory Orders Aspirin [Aspirin 81] 81 mg PO DAILY 06/15/13 Doxepin HCl 10 mg PO HS 06/15/13 Enalapril Maleate [Vasotec] 20 mg PO BEDTIME 06/15/13 Cholecalciferol [Vitamin D3] 1,000 unit PO DAILY 05/01/18 Cyanocobalamin [Vitamin B-12] 2,500 mcg SL DAILY 05/01/18 Glimepiride 1 mg PO BEDTIME 05/01/18 Metformin HCl 500 mg PO TID 05/01/18 Acetaminophen W/ Codeine [Tylenol W/ CODEINE #3] 1 ea PO Q4HR PRN #30 05/02/18 Atorvastatin Calcium [Lipitor] 10 mg PO BEDTIME #15 tab 05/02/18 Meloxicam [Mobic] 7.5 mg PO DAILY PRN #30 tab 05/02/18 Spironolactone [Aldactone] 25 mg PO DAILY #15 tab 05/02/18 Tramadol HCl 25 mg PO Q4HR PRN #30 tab 05/05/18 Review of Systems - Review of Systems Constitutional: States: no symptoms reported EENTM: States: no symptoms reported Respiratory: States: no symptoms reported Cardiology: States: no symptoms reported Gastrointestinal/Abdominal: States: vomiting Musculoskeletal: States: no symptoms reported Skin: States: no symptoms reported Neurological: States: no symptoms reported Past Medical History (General) - Patient Medical History Hx Seizures: No Hx Stroke: No Hx of COPD: No Hx Congestive Heart Failure: No Hx Pacemaker: No Hx Hypertension: Yes Hx Diabetes: Yes Hx Cancer: No Hx Hepatitis C: No Hx MRSA: No Surgical History: appendectomy, other - umbilical hernia repair;explore lap - Vaccination History Hx Tetanus, Diphtheria Vaccination: No Hx Influenza Vaccination: No Hx Pneumococcal Vaccination: Yes - Social History Hx Tobacco Use: No Hx Alcohol Use: No Hx Substance Use: No Hx Physical Abuse: No Hx Emotional Abuse: No - Activities of Daily Living Patient Lives Alone: No Grooming Ability: Independent Eating (Feeding) Ability: Independent Toileting Ability: Independent - Female History Patient : No - Triage Comment ED Triage Comment: nausea after taking codeine tablets. Not able to take blood pressure meds due to nausea Family Medical History - Family History Mother Family History: Unknown Physical Exam - Physical Exam General Appearance: Alert, Comfortable, No apparent distress Eye Exam: bilateral normal Ears, Nose, Throat: hearing grossly normal, normal ENT inspection Neck: non-tender, supple, normal inspection Respiratory: lungs clear, normal breath sounds, other - tenderness left lower rib cage Cardiovascular/Chest: normal peripheral pulses, regular rate, rhythm, no murmur Peripheral Pulses: radial,right: 2+, radial,left: 2+ Gastrointestinal/Abdominal: non tender, soft, distended Back Exam: no CVA tenderness, no vertebral tenderness Neurologic: alert, oriented x 3 Skin Exam: normal color, warm/dry, other - ecchymosis left periorbital area Progress - Progress Progress: 05/04/18 22:06 Vital Signs - 8 hr 05/04/18 21:38 Temperature 99.1 F Pulse Rate [ 77 Right] Respiratory 16 Rate Blood Pressure 197/122 [Left Arm] O2 Sat by Pulse 98 Oximetry 05/05/18 00:40 After giving Hydralazine 20 mg IV blood pressure dropped to BP-126/66 patient felt nauseated also given Zofran and NS 500 cc bolus - Results/Orders Results/Orders: 05/04/18 22:03 IV Care:Saline Lock per Protoc QSHIFT 05/04/18 22:15 CARDIAC PANEL,ER Stat HEPATIC FUNCTION PANEL Stat Laboratory Results - last 24 hr 05/04/18 22:15 WBC 8.3 RBC 4.26 L Hgb 13.4 L Hct 38.9 L MCV 91.3 MCH 31.4 H MCHC 34.3 RDW 13.0 Plt Count 156 MPV 8.5 Absolute Neuts (auto) 6.60 Absolute Lymphs (auto) 0.90 L Absolute Monos (auto) 0.70 Absolute Eos (auto) 0.10 Absolute Basos (auto) 0.00 Neutrophils % 78.9 H Lymphocytes % 10.5 L Monocytes % 8.5 Eosinophils % 1.8 Basophils % 0.3 PT 10.2 INR 1.02 PTT (SP) 34.1 H Sodium 134 L Potassium 3.9 Chloride 99 L Carbon Dioxide 28 Anion Gap 10.9 L BUN 13 Creatinine 0.84 BUN/Creatinine Ratio 15.5 Random Glucose 188 H Serum Osmolality 273.3 L Calcium 9.4 Magnesium 2.1 Total Bilirubin 0.8 Direct Bilirubin 0.2 Indirect Bilirubin 0.6 AST 17 ALT 21 Alkaline Phosphatase 98 Creatine Kinase 83 CK-MB (CK-2) 2.8 Troponin I < 0.02 Serum Total Protein 7.0 Albumin 3.7 Discuss all test result with patient and spouse no acute abnormal findings noted. - EKG/XRAY/CT XRAY: abdomen - no acute intraabdominal findings CT Ordered: Yes - Head-no acute intracranial abnormalities Departure - Departure Clinical Impression: History of fracture of rib, History of closed head injury, Constipation due to pain medication Nausea & vomiting Qualifiers: Vomiting type: unspecified Vomiting Intractability: non-intractable Qualified Code(s): R11.2 - Nausea with vomiting, unspecified Hypertension Qualifiers: Hypertension type: unspecified Qualified Code(s): I10 - Essential (primary) hypertension Time of Disposition: 00:55 Disposition: Discharge to Home or Self Care Condition: Fair Departure Forms: ED Discharge - Pt. Copy, Patient Portal Self Enrollment Instructions: Constipation, Adult (DC), Constipation in Adults, High Fiber Diet Referrals: Juan Khanna III, MD [Primary Care Provider] - 1-2 Weeks Prescriptions: Tramadol HCl 25 mg PO Q4HR PRN #30 tab PRN Reason: Pain Home Medications: Ambulatory Orders Aspirin [Aspirin 81] 81 mg PO DAILY 06/15/13 Doxepin HCl 10 mg PO HS 06/15/13 Enalapril Maleate [Vasotec] 20 mg PO BEDTIME 06/15/13 Cholecalciferol [Vitamin D3] 1,000 unit PO DAILY 05/01/18 Cyanocobalamin [Vitamin B-12] 2,500 mcg SL DAILY 05/01/18 Glimepiride 1 mg PO BEDTIME 05/01/18 Metformin HCl 500 mg PO TID 05/01/18 Acetaminophen W/ Codeine [Tylenol W/ CODEINE #3] 1 ea PO Q4HR PRN #30 05/02/18 Atorvastatin Calcium [Lipitor] 10 mg PO BEDTIME #15 tab 05/02/18 Meloxicam [Mobic] 7.5 mg PO DAILY PRN #30 tab 05/02/18 Spironolactone [Aldactone] 25 mg PO DAILY #15 tab 05/02/18 Tramadol HCl 25 mg PO Q4HR PRN #30 tab 05/05/18 Additional Instructions: May use over the counter Aspercreme with lidocaine apply to affected area 3 x a day for pain;Return to ER as needed;Continue with all home med except Codeine.
[2018-05-04] MEDS ORDERED: cloNIDine HCL 0.1 MG TAB PO ONE (22:03)
[2018-05-04] MEDS ORDERED: ONDANSETRON INJ 4 MG/2 ML VIAL IV ONE (22:04)
--- NOTE | 2018-05-04 23:02 | RAD ---
EXAM: Chest,1 View CLINICAL INDICATION: Abdominal distention COMPARISON: 05/02/2018 FINDINGS: A single view of the chest was obtained. Atherosclerotic calcifications are noted involving the aorta. The heart size is normal. The pulmonary vascularity is unremarkable. The lungs are clear. There is no consolidation, infiltrate, pleural effusion, or pneumothorax. IMPRESSION: No evidence of active pulmonary disease. Electronically signed by: Kevin Olivo MD 05/04/2018 11:01 PM [facility]
--- NOTE | 2018-05-04 23:03 | RAD ---
EXAM: Abdomen Flat Upright CLINICAL INDICATION: Abdominal distention COMPARISON: There is no previous study for comparison. FINDINGS: Three views of the abdomen reveal moderate stool throughout the colon consistent with constipation. There is a nonspecific bowel gas pattern with no radiographic evidence of bowel obstruction. There are no dilated loops of small bowel. There is no evidence of pneumoperitoneum or pathologic calcifications. IMPRESSION: No evidence of an acute intraabdominal process. Moderate constipation. Electronically signed by: Kevin Olivo MD 05/04/2018 11:02 PM [facility]
--- NOTE | 2018-05-04 23:04 | CT ---
CLINICAL HISTORY: nausea/vomiting ;elevated BP COMPARISON: None. TECHNIQUE: CT HEAD WITHOUT IV CONTRAST on 05/04/2018 10:01 PM [employer] [employer] This exam was performed according to our departmental dose-optimization program, which includes automated exposure control, adjustment of the mA and/or kV according to patient size and/or use of iterative reconstruction technique. FINDINGS: There is no acute hemorrhage, mass effect or midline shift. Cho-white differentiation is preserved. There is no hydrocephalus. There is no significant volume loss for age. There are mild patchy hypodensities within the periventricular and subcortical white matter, consistent with microangiopathic ischemic changes. The calvarium is intact. Orbits and globes are unremarkable. The paranasal sinuses are clear. Mastoid air cells are clear. IMPRESSION: No acute intracranial findings. Electronically signed by: Kenny Adamson MD 05/04/2018 11:02 PM [facility] [employer]
[2018-05-04] MEDS ORDERED: traMADol HCL 50 MG (ER DISP) # 6 TABS PO ONE (23:25)
[2018-05-04] MEDS ORDERED: hydrALAZINE HCl 20 MG/ML VIAL IV ONE (23:50)
[2018-05-05] MEDS ORDERED: ONDANSETRON INJ 4 MG/2 ML VIAL IV ONE (00:32)
[2018-05-05] MEDS ORDERED: SODIUM CHLORIDE 0.9% 1000ML 500 ML IVS ONE (00:32)
[2018-05-05 00:43] VITALS: O2SAT 97
[2018-05-05 01:09] VITALS: BP 149/80
== END 2018-05-05 01:10 | disposition home or self-care (01) ==
LOC: ER 21:19
DX: R11.2 Nausea with vomiting, unspecified (principal); I10 Essential (primary) hypertension; K59.03 Drug induced constipation; T40.2X5A Adverse effect of other opioids, initial encounter; E11.9 Type 2 diabetes mellitus without complications; Z79.84 Long term (current) use of oral hypoglycemic drugs; Z79.899 Other long term (current) drug therapy; Z79.82 Long term (current) use of aspirin; Z88.0 Allergy status to penicillin; Z88.2 Allergy status to sulfonamides
CPT/HCPCS: 36415; 70450; 71045; 74019; 80048; 80076; 82550; 82553; 84484; 85025; 85610; 85730; J0360; J2405; J7030

== ENCOUNTER → 2018-07-09 | Outpatient (CLI) | payer MEDICARE, OTHER | LOC: GMAL 11:05 | PROVIDERS: ATTEND Family Medicine | DX: R97.20 Elevated prostate specific antigen [PSA] (principal) ==

== ENCOUNTER → 2018-07-15 | Outpatient (CLI) | payer MEDICARE, OTHER | LOC: GMAL 15:21 | PROVIDERS: ATTEND Family Medicine | DX: R53.83 Other fatigue (principal) ==

== ENCOUNTER → 2019-04-27 | Outpatient (CLI) | payer MEDICARE, OTHER | LOC: GMAL 11:00 | PROVIDERS: ATTEND Family Medicine | DX: E29.1 Testicular hypofunction (principal); R97.20 Elevated prostate specific antigen [PSA] ==